=== PATIENT | female | born 1940 | race Caucasian/White ===

== ENCOUNTER 2019-03-27 01:36 | Observation (INO) ==
[2019-03-27] MEDS ORDERED: SODIUM CHLORIDE 0.9% 1,000 ML IV STA (02:05)
[2019-03-27 02:25] LABS: Basophils % 0.4 % (0.0-0.8); Eosinophils # 0.2 10*3/uL (0.0-0.87); Eosinophils % 3.2 % (0.00-10.9); Hematocrit 34.8 VOL% (35.7-47.0); Immature Granulocytes % 0.7 %; Immature Granulocytes Absolute 0.05 #; Lymphocytes # 1.9 10*3/uL (1.4-4.0); Mean Corpuscular HGB Conc 34.5 GM/DL (32-36); Mean Corpuscular Volume 94.1 FL (87-102); Mean Platelet Volume 10.2 FL (9.6-12.0); Monocytes % 10.4 % (1.7-12.7); Neutrophils % 59.3 % (38.7-73.9); Platelet Count 205 T/CUMM (130-400); Red Cell Distribution Width 12.5 % (9.3-17.3); White Blood Count 7.4 T/CUMM (4-12)
[2019-03-27 03:39] LABS: Alanine Aminotransferase 22 U/L (13-56); Albumin 3.8 G/DL (3.4-5.0); Alkaline Phosphatase 55 U/L (45-117); Aspartate Amino Transferase 20 U/L (0-37); Blood Urea Nitrogen 14 MG/DL (7-18); Calcium 8.3 MG/DL (8.5-10.1); Estimated Glom Filtration Rate 72 ML/MIN; Glucose 100 MG/DL (74-106); Osmolality,Calculated 279.4 MOS/KG (273-304); Total Protein 6.4 G/DL (6.4-8.3)
[2019-03-27 03:50] LABS: Apearance,Urine CLEAR (Clear); Bilirubin,Urine Negative (Negative); Blood, Urine Negative (Negative); Glucose,Urine (UA) Negative (Negative); Hyaline Casts,Urine 13 /LPF (0-3); Ketones,Urine 5 mg/dL (Negative); Mucus,Urine Occasional /LPF (Occasional); Nitrite,Urine Negative (Negative); Protein,Urine Negative; RBC,Urine 2 /HPF (0-4); Urine Color Yellow (Yellow); Urine Specific Gravity 1.011 (1.001-1.035); Urine Urobilinogen < 2.0 EU/DL (0.2-1.0); WBC,Urine <1 /HPF (0-6)
[2019-03-27 03:54] LABS: Barbiturates Screen,Urine Negative (Negative); Benzodiazepines Screen,Urine Negative (Negative); Cannabinoid Screen,Urine Negative (Negative); Opiate Screen,Urine Positive (Negative); Phencyclidine Screen,Urine Negative (Negative)
[2019-03-27] MEDS ORDERED: ONDANSETRON 4 MG/2 ML VIAL IV PRN (04:23)
[2019-03-27] MEDS ORDERED: ACETAMINOPHEN 325 MG TABLET PO PRN (04:23)
[2019-03-27] MEDS: SODIUM CHLORIDE 0.9% 1,000 ML IV SCH ×3 (05:52→22:39)
[2019-03-27] MEDS: PANTOPRAZOLE 40 MG VIAL IV SCH (08:36)
[2019-03-27] MEDS ORDERED: ESCITALOPRAM 10 MG TABLET PO SCH (13:00)
[2019-03-27] MEDS ORDERED: GABAPENTIN 300 MG CAPSULE PO SCH (13:00)
[2019-03-27] MEDS ORDERED: METOPROLOL SUCCINATE XL 25 MG TABLET PO SCH (13:00)
[2019-03-27] MEDS ORDERED: ASPIRIN EC 81 MG TABLET PO SCH (13:00)
[2019-03-27] MEDS: TAMSULOSIN 0.4 MG CAPSULE PO SCH (13:50)
[2019-03-27] MEDS: MAGNESIUM GLUCONATE 500 MG TABLET PO SCH (13:53)
[2019-03-27] MEDS: FLUTICASONE 50 MCG NASAL SPRAY 16 GM BOTTLE BOTH NARES SCH (13:54)
[2019-03-27] MEDS: DICLOFENAC 1% GEL 100 GM TUBE TOP SCH ×2 (13:55→16:09)
[2019-03-27] MEDS ORDERED: GABAPENTIN 600 MG TABLET PO SCH ×2 (21:00)
[2019-03-27] MEDS: VOLTAREN 1% GEL TOP SCH (21:20)
[2019-03-28] MEDS: SODIUM CHLORIDE 0.9% 1,000 ML IV SCH ×2 (07:18→08:12)
[2019-03-28] MEDS: TAMSULOSIN 0.4 MG CAPSULE PO SCH (08:13)
[2019-03-28] MEDS: PANTOPRAZOLE 40 MG VIAL IV SCH (08:13)
[2019-03-28] MEDS: MAGNESIUM GLUCONATE 500 MG TABLET PO SCH (08:15)
[2019-03-28] MEDS: VOLTAREN 1% GEL TOP SCH (08:15)
[2019-03-28] MEDS: FLUTICASONE 50 MCG NASAL SPRAY 16 GM BOTTLE BOTH NARES SCH (08:15)
[2019-03-28] MEDS ORDERED: GABAPENTIN 300 MG CAPSULE PO SCH (09:00)
[2019-03-28] MEDS ORDERED: ESCITALOPRAM 10 MG TABLET PO SCH (09:00)
[2019-03-28] MEDS ORDERED: ASPIRIN EC 81 MG TABLET PO SCH (09:00)
[2019-03-28] MEDS ORDERED: METOPROLOL SUCCINATE XL 25 MG TABLET PO SCH (09:00)
[2019-03-28 11:44] VITALS: BP 127/61
== END 2019-03-28 13:35 | disposition home or self-care (01) ==
LOC: EDBD → EDUNIT# → N.EDINP 01:36 → N.ED 01:36 → N.TELES 04:37
PROVIDERS: ADMIT Internal Medicine; ATTEND Internal Medicine